=== PATIENT | male | born 1960 | race Caucasian/White ===

== ENCOUNTER 2019-02-12 05:55 | Day surgery (SDC) | payer OTHER ==
[~2019-02-12 05:55] MED LIST: ATORVASTATIN CA10 MG PO; LOSARTAN POTASS25 MG PO; SINGULAIR10 MG PO; ZYRTEC10 M3 PO
== END 2019-02-12 11:03 | disposition home or self-care (01) ==
LOC: CIR.AMB 05:55 → EDBD 10:00 → CIR.AMB 10:00
DX: M71.342 Other bursal cyst, left hand (principal)

== ENCOUNTER 2022-03-02 07:17 | Outpatient (CLI) | payer OTHER ==
[2022-03-09] MEDS ORDERED: PROSCAR5 MG PO (10:12)
[2022-03-09] MEDS ORDERED: TAMS0.4C PO (10:12)
== END 2022-03-02 07:18 | disposition home or self-care (01) ==
LOC: LAB 07:17
PROVIDERS: ATTEND Urology
DX: I11.9 Hypertensive heart disease without heart failure (principal); R33.9 Retention of urine, unspecified

== ENCOUNTER 2022-03-16 06:00 | Inpatient (IN) | payer OTHER ==
[~2022-03-16] VITALS: Ht 172.7 cm; Wt 122.5 kg
[~2022-03-16 06:00] MED LIST changes: +PROSCAR5 MG PO; +TAMS0.4C PO
== END 2022-03-18 10:36 | disposition home or self-care (01) | DRG 714 ==
LOC: CIR.AMB 06:00 → SURH 13:58 → CIR.AMB 16:23 → SURH 03-18 10:36
PROVIDERS: ADMIT Urology; ATTEND Urology
PROC: 0VT08ZZ Resection of Prostate, Via Natural or Artificial Opening Endoscopic (ICD-10-PCS; principal; 2022-03-16 08:45)
DX: N40.0 Benign prostatic hyperplasia without lower urinary tract symptoms (principal); N41.1 Chronic prostatitis; R97.20 Elevated prostate specific antigen [PSA]; R33.9 Retention of urine, unspecified; F52.21 Male erectile disorder; Z20.822 Contact with and (suspected) exposure to COVID-19

== ENCOUNTER 2022-03-29 01:47 | Emergency (ER) | payer OTHER ==
[~2022-03-29] VITALS: Ht 172.7 cm; Wt 122.5 kg
[2022-03-29] MEDS ORDERED: PHENAZOPYRIDIN200 MG PO (19:40)
[2022-03-29] MEDS ORDERED: CIPRO500 MG/5 M PO (19:40)
[2022-03-29] MEDS ORDERED: ULTRAM50 MG PO (19:40)
== END 2022-03-29 10:00 | disposition home or self-care (01) ==
LOC: ER 01:47
DX: N39.0 Urinary tract infection, site not specified (principal); R31.9 Hematuria, unspecified; R33.9 Retention of urine, unspecified

== ENCOUNTER 2022-03-29 19:22 | Emergency (ER) | payer OTHER ==
[~2022-03-29] VITALS: Ht 172.7 cm; Wt 122.5 kg
[2022-03-29] MEDS ORDERED: CIPRO500 MG/5 M PO (19:40)
[2022-03-29] MEDS ORDERED: PHENAZOPYRIDIN200 MG PO (19:40)
[2022-03-29] MEDS ORDERED: ULTRAM50 MG PO (19:40)
== END 2022-03-30 00:06 | disposition home or self-care (01) ==
LOC: ER 19:22
DX: T83.018A Breakdown (mechanical) of other urinary catheter, initial encounter (principal); Y99.9 Unspecified external cause status; N40.0 Benign prostatic hyperplasia without lower urinary tract symptoms

== ENCOUNTER 2022-03-31 01:45 | Emergency (ER) | payer OTHER ==
[~2022-03-31] VITALS: Ht 172.7 cm; Wt 122.5 kg
[~2022-03-31 01:45] MED LIST changes: +CIPRO500 MG/5 M PO; +PHENAZOPYRIDIN200 MG PO; +ULTRAM50 MG PO
== END 2022-03-31 08:21 ==
LOC: ER 01:45
DX: R33.8 Other retention of urine (principal); T83.9XXA Unspecified complication of genitourinary prosthetic device, implant and graft, initial encounter